=== PATIENT | male | born 1990 | race Two or more races ===

== ENCOUNTER 2019-12-14 17:09 | Emergency (ER) | payer OTHER ==
[~2019-12-14] VITALS: Ht 177.8 cm; Wt 81.2 kg
== END 2019-12-14 17:33 | disposition home or self-care (01) ==
LOC: ER 17:09
DX: M94.0 Chondrocostal junction syndrome [Tietze] (principal)

== ENCOUNTER 2019-12-30 21:32 | Emergency (ER) | payer OTHER ==
[~2019-12-30] VITALS: Ht 177.8 cm; Wt 81.2 kg
== END 2019-12-30 23:42 | disposition home or self-care (01) ==
LOC: ER 21:32
DX: N52.8 Other male erectile dysfunction (principal); F06.4 Anxiety disorder due to known physiological condition

== ENCOUNTER 2020-02-04 23:45 | Emergency (ER) | payer OTHER ==
[~2020-02-04] VITALS: Ht 177.8 cm; Wt 76.7 kg
== END 2020-02-05 02:15 | disposition left against medical advice (07) ==
LOC: ER 23:45
DX: Z53.20 Procedure and treatment not carried out because of patient's decision for unspecified reasons (principal)

== ENCOUNTER 2020-03-23 15:19 | Emergency (ER) | payer OTHER ==
[~2020-03-23] VITALS: Ht 177.8 cm; Wt 90.7 kg
== END 2020-03-23 21:18 | disposition home or self-care (01) ==
LOC: ER 15:19
DX: N39.0 Urinary tract infection, site not specified (principal); A63.8 Other specified predominantly sexually transmitted diseases

== ENCOUNTER 2020-03-26 08:55 | Emergency (ER) | payer OTHER ==
[~2020-03-26] VITALS: Ht 177.8 cm; Wt 95.3 kg
== END 2020-03-26 11:35 | disposition home or self-care (01) ==
LOC: ER 08:55
DX: M94.0 Chondrocostal junction syndrome [Tietze] (principal); R07.89 Other chest pain; R10.31 Right lower quadrant pain; R07.0 Pain in throat; Z03.818 Encounter for observation for suspected exposure to other biological agents ruled out

== ENCOUNTER 2020-05-09 12:19 | Emergency (ER) | payer OTHER ==
[~2020-05-09] VITALS: Ht 177.8 cm; Wt 93.9 kg
== END 2020-05-09 16:22 | disposition home or self-care (01) ==
LOC: ER 12:19
DX: K52.9 Noninfective gastroenteritis and colitis, unspecified (principal); Z03.818 Encounter for observation for suspected exposure to other biological agents ruled out

== ENCOUNTER 2020-10-24 18:09 | Emergency (ER) | payer OTHER ==
[~2020-10-24] VITALS: Ht 177.8 cm; Wt 95.3 kg
[2020-10-24] MEDS ORDERED: KETO10TA2 PO (18:38)
[2020-10-24] MEDS ORDERED: AMOX-CLAV 875-1 EAC1 PO (18:38)
== END 2020-10-24 18:59 | disposition home or self-care (01) ==
LOC: ER 18:09
DX: H65.92 Unspecified nonsuppurative otitis media, left ear (principal)